=== PATIENT | female | born 1975 | race Caucasian/White ===

== ENCOUNTER 2019-12-19 20:06 | Emergency (ER) | payer OTHER ==
[~2019-12-19] VITALS: Ht 162.6 cm; Wt 83.9 kg
[2019-12-19] MEDS ORDERED: KEFLEX500 MG PO (21:05)
== END 2019-12-19 21:16 | disposition home or self-care (01) ==
LOC: ED 20:06
DX: N30.90 Cystitis, unspecified without hematuria (principal); F17.200 Nicotine dependence, unspecified, uncomplicated; Z88.2 Allergy status to sulfonamides
CPT/HCPCS: 81001; 84703; 99283; A9270